=== PATIENT | male | born 1995 | race Caucasian/White ===

== ENCOUNTER 2017-05-13 12:54 | Emergency (ER) | payer SELFPAY ==
[~2017-05-13] VITALS: Ht 165.1 cm; Wt 87.7 kg
[2017-05-13 12:57] VITALS: BP 145/70; PULSE 111; TEMP 98.4
== END 2017-05-13 17:07 | disposition home or self-care (01) ==
LOC: COL.ER 12:54
DX: R51 Headache (principal); R20.0 Anesthesia of skin; R11.2 Nausea with vomiting, unspecified; R00.0 Tachycardia, unspecified
CPT/HCPCS: J1200; J1885; J2765; J7030

== ENCOUNTER 2017-07-29 16:04 | Emergency (ER) | payer SELFPAY ==
[~2017-07-29] VITALS: Ht 165.1 cm; Wt 93.2 kg
[2017-07-29 16:11] VITALS: TEMP 99.7
[2017-07-29] MEDS ORDERED: PREDNISONE20 MG PO (16:56)
[2017-07-29 17:10] VITALS: BP 146/87; PULSE 104
== END 2017-07-29 17:11 | disposition home or self-care (01) ==
LOC: COL.ER 16:04
DX: J45.909 Unspecified asthma, uncomplicated (principal); Z87.891 Personal history of nicotine dependence
CPT/HCPCS: J7512